=== PATIENT | male | born 1970 | race Caucasian/White ===

== ENCOUNTER → 2017-08-15 14:53 | Outpatient (CLI) | payer MEDICARE, SELFPAY ==
[2017-08-15 18:03] LABS: Anion Gap 7 (5-15); BUN 15 mg/dL (7-18); BUN/Creat Ratio 13.4 RATIO (10-20); Calcium,Total 10.1 mg/dL (8.5-10.1); Chloride 105 mmol/L (98-107); Cholesterol 201 mg/dL (200); Creatinine, Serum 1.12 mg/dL (0.70-1.30); EST Glomerular Filtration Rate 75 mL/min (>60); Est Glom Filt Rate - Afr Amer 91 mL/min (>60); Glucose 83 mg/dL (74-106); High Density Lipoprotein 52 mg/dL; Sodium Level 140 mmol/L (136-145); Triglycerides 183 mg/dL; Very Low Density Lipoprotein 37 mg/dL (5-40)
== END ==
PROVIDERS: Family Provider Family Medicine; PCP Family Medicine; Visit Provider Family Medicine
DX: Z00.00 Encounter for general adult medical examination without abnormal findings (principal)
CPT/HCPCS: 36415; 80048; 80061

== ENCOUNTER → 2018-08-19 09:06 | Outpatient (CLI) | payer MEDICARE, SELFPAY ==
[2018-08-19 10:37] LABS: Anion Gap 3 (5-15); BUN 19 mg/dL (7-18); BUN/Creat Ratio 17.6 RATIO (10-20); Calcium,Total 10.4 mg/dL (8.5-10.1); Chloride 107 mmol/L (98-107); Cholesterol 214 mg/dL (200); Creatinine, Serum 1.08 mg/dL (0.70-1.30); EST Glomerular Filtration Rate 78 mL/min (>60); Est Glom Filt Rate - Afr Amer 94 mL/min (>60); Glucose 87 mg/dL (74-106); High Density Lipoprotein 46 mg/dL; PSA,Total - Annual Screen 0.89 ng/mL (0.00-4.00); Potassium 4.5 mmol/L (3.5-5.1); Sodium Level 139 mmol/L (136-145); Triglycerides 398 mg/dL; Very Low Density Lipoprotein 80 mg/dL (5-40)
== END ==
PROVIDERS: Family Provider Family Medicine; PCP Family Medicine; Referring Provider Family Medicine; Visit Provider Family Medicine
DX: Z00.00 Encounter for general adult medical examination without abnormal findings (principal); E29.1 Testicular hypofunction
CPT/HCPCS: 36415; 80048; 80061; 84153; 84403; G0103

== ENCOUNTER → 2019-02-01 14:05 | Outpatient (CLI) | payer MEDICARE, SELFPAY ==
[2019-02-01 15:46] LABS: Cholesterol 172 mg/dL (200); High Density Lipoprotein 55 mg/dL; Magnesium 2.3 mg/dL (1.6-2.6); Thyroid Stim Hormone (TSH) 2.58 uIU/mL (0.358-3.74); Triglycerides 160 mg/dL; Very Low Density Lipoprotein 32 mg/dL (5-40)
== END ==
PROVIDERS: Family Medicine; Family Provider Family Medicine; PCP Family Medicine; Visit Provider Family Medicine
DX: E78.5 Hyperlipidemia, unspecified (principal); R00.2 Palpitations
CPT/HCPCS: 36415; 80061; 83735; 84443

== ENCOUNTER → 2019-02-10 06:49 | Outpatient (CLI) | payer MEDICARE, SELFPAY ==
--- NOTE | 2019-02-16 17:35 | STRESSREP ---
Stress Test Report Date: 02/16/2019 Procedure: Exercise tolerance test Indications: Chest pain, palpitations Consent: Per the patient Procedure: The patient exercised on a Robert protocol for 8 minutes achieving a peak heart rate of 160 bpm (92 % predicted maximal heart rate) with a peak blood pressure 170/62 mmHg and a peak MET capacity of approximately 10.1 mET's. The baseline ECG demonstrated normal sinus rhythm, nonspecific ST-T changes. The peak exercise ECG demonstrated sinus tachycardia with significant baseline artifact with about [address] depressions in the inferior and lateral leads. [There were no cardiac dysrhythmias pretest, during exercise, or recovery]. The functional capacity was considered average for age. The patient had no complaint of chest discomfort during exercise or recovery. The examination was discontinued secondary to patient achieving target heart rate. Impression: 1. Technically adequate (percent predicted maximal heart rate greater than 85%) exercise tolerance test 2. Stress test is negative for exercise-induced chest pain. 3. Stress test test is negative for exercise-induced EKG changes of ischemia. 4. Functional capacity is average for age This note was generated with [employer] software. It may contain incorrect words, spelling, and punctuation that were not noted in checking the note before signing.
== END ==
PROVIDERS: Family Provider Family Medicine; PCP Family Medicine; Referring Provider Family Medicine; Visit Provider Family Medicine
DX: R07.9 Chest pain, unspecified (principal)
CPT/HCPCS: 93017

== ENCOUNTER → 2020-02-16 08:34 | Outpatient (CLI) | payer MEDICARE, SELFPAY ==
[2020-02-16 10:38] LABS: Anion Gap 4 (5-15); BUN 19 mg/dL (7-18); BUN/Creat Ratio 16.7 RATIO (10-20); Chloride 105 mmol/L (98-107); Cholesterol 200 mg/dL (200); Creatinine, Serum 1.14 mg/dL (0.70-1.30); EST Glomerular Filtration Rate 73 mL/min (>60); Est Glom Filt Rate - Afr Amer 88 mL/min (>60); Glucose 94 mg/dL (74-106); High Density Lipoprotein 56 mg/dL; Potassium 4.2 mmol/L (3.5-5.1); Sodium Level 138 mmol/L (136-145); Triglycerides 161 mg/dL; Very Low Density Lipoprotein 32 mg/dL (5-40)
== END ==
PROVIDERS: PCP Family Medicine; Referring Provider Family Medicine; Visit Provider Family Medicine
DX: I10 Essential (primary) hypertension (principal)
CPT/HCPCS: 36415; 80048; 80061

== ENCOUNTER → 2020-08-30 | Outpatient (CLI) | payer MEDICARE, SELFPAY ==
[2020-08-30 18:29] LABS: Chlamydia Trachomatis by PCR Negative (Negative); Neisserai gonorrhoeae by PCR Negative (Negative); Probe Check PASS; Sample Adequacy Control PASS; Specimen Processing Control PASS
== END | disposition home or self-care (01) ==
PROVIDERS: PCP Family Medicine; Referring Provider Family Medicine; Visit Provider Family Medicine
DX: R30.0 Dysuria (principal)
CPT/HCPCS: 87086; 87491; 87591

== ENCOUNTER → 2020-09-27 11:59 | Outpatient (CLI) | payer MEDICARE, SELFPAY ==
--- NOTE | 2020-09-27 12:10 | RAD_ITS ---
STUDY: X-RAY - ABDOMEN/PELVIS REASON FOR EXAM: Male, 50 years old. DYSURIA TECHNIQUE: 4 view COMPARISON: 04/12/2012 FINDINGS: Normal visualized lung bases. There is an unremarkable bowel gas pattern. There is no demonstrated free abdominal air. The visualized liver, spleen and kidneys are grossly normal in size and morphology. Normal soft tissue structures. Normal visualized osseous structures. RAD/Abd Inc Decub and/or Erect IMPRESSION: Normal x-ray examination of the abdomen and pelvis. Electronically Signed: Deepa Pendleton, at 12:32 EDT Tel , Service support ,
== END ==
PROVIDERS: PCP Family Medicine; Referring Provider Family Medicine; Visit Provider Family Medicine
DX: R30.0 Dysuria (principal)
CPT/HCPCS: 74019

== ENCOUNTER → 2021-01-05 10:55 | Outpatient (CLI) | payer MEDICARE, SELFPAY ==
[2021-01-05 12:21] LABS: Absolute Lymphocyte Count 0.81 X10^3/uL (0.83-4.51); Absolute Neutrophil Count 5.5 X10^3/uL (2.0-7.7); Basophil# 0.03 X10^3/uL; Basophil% 0.4 % (0-1); Eosinophil# 0.05 X10^3/uL; Eosinophils% 0.7 % (0-5); Hematocrit 46.9 % (40-54); Lymphocyte # 0.81 X10^3/ul (0.83-4.51); Lymphocyte % 11.6 % (19-41); Mean Corp Hgb Conc 34.1 g/dL (32-36); Mean Corpuscular Hgb 32.5 pg (27.0-32.0); Mean Corpuscular Volume 95.1 fL (80-94); Mean Platelet Vol. 9.3 fl (6.2-12.0); Monocyte# 0.57 X10^3/uL; Monocyte% 8.2 % (0-10); NRBC Flagged by Analyzer 0 % (0-5); Neutrophil # 5.47 X10^3/uL (2.7-7.7); Neutrophil % 78.7 % (47-70); Platelet Count 287 K/mm3 (150-450); RBC Distribution Width CV 12.1 % (11.6-14.6); RBC Distribution Width SD 42.3 fl (35.1-43.9); Red Blood Count 4.93 M/mm3 (4.6-6.2)
[2021-01-05 12:44] LABS: Anion Gap 5 (5-15); BUN 15 mg/dL (7-18); BUN/Creat Ratio 14.6 RATIO (10-20); Chloride 104 mmol/L (98-107); Creatinine, Serum 1.03 mg/dL (0.70-1.30); EST Glomerular Filtration Rate 82 mL/min (>60); Est Glom Filt Rate - Afr Amer 99 mL/min (>60); Glucose 106 mg/dL (74-106); Magnesium 2.6 mg/dL (1.6-2.6); Potassium 4.6 mmol/L (3.5-5.1); Sodium Level 139 mmol/L (136-145); Troponin-I HS 6 pg/mL (3.0-78.0)
== END ==
PROVIDERS: PCP Family Medicine; Referring Provider Family Medicine; Visit Provider Family Medicine
DX: R00.2 Palpitations (principal)
CPT/HCPCS: 36415; 80048; 83735; 84484; 85025

== ENCOUNTER → 2021-01-11 06:52 | Outpatient (CLI) | payer MEDICARE, SELFPAY ==
--- NOTE | 2021-01-12 15:50 | STRESSREP_ITS ---
Stress Test Report Date: 01/11/2021 Procedure: Exercise tolerance test/imaging study Indications: Chest pain Consent: Per the patient Procedure: The patient exercised on a Robert protocol for 8 minutes 11 seconds achieving a peak heart rate of 10.1 bpm (98% predicted maximal heart rate) with a peak blood pressure 180/104 mmHg and a peak MET capacity of 10.1 METs. The baseline ECG demonstrated normal sinus rhythm, early repolarization changes. The peak exercise ECG demonstrated no significant ischemic changes. EKG during recovery revealed no significant ischemic changes [There were no cardiac dysrhythmias pretest, during exercise, or recovery]. The functional capacity was considered normal for age. There was [no complaint of chest discomfort during exercise or recovery]. The examination was discontinued secondary to shortness of breath. Impression: 1. Technically adequate (percent predicted maximal heart rate greater than 85%) exercise tolerance test 2. Stress test is negative for exercise-induced EKG changes of ischemia 3. The test test is negative for exercise-induced chest pain 4. Functional capacity is normal for age 5. Nuclear images pending Myocardial perfusion imaging study: Technique: The patient was injected with [] mCi of technetium 99m Cardiolite and subsequently rest SPECT Cardiolite nuclear imaging was obtained in the horizontal long, vertical long, and short axis views. The patient exercised on a Robert protocol. Please see above for details. The patient was injected with [] mCi of technetium 99m Cardiolite and subsequently stress SPECT Cardiolite nuclear imaging was obtained in the horizontal long, vertical long, and short axis views. A gated Cardiolite study at peak stress was obtained. Interpretation: Rest and stress SPECT Cardiolite nuclear imaging status post realignment, normalization, and attenuation correction, demonstrates overall normal myocardial radioisotope uptake. The gated Cardiolite study demonstrates no significant regional wall motion abnormalities. The reported LVEF is 59%. Impression: 1. There is no evidence of significant ischemia or infarction. 2. The gated Cardiolite study reports an LVEF of 59%. This note was generated with [email or web address] software. It may contain incorrect words, spelling, and punctuation that were not noted in checking the note before signing.
== END ==
PROVIDERS: PCP Family Medicine; Referring Provider Family Medicine; Visit Provider Family Medicine
DX: R07.9 Chest pain, unspecified (principal)
CPT/HCPCS: 78452; 93017; A9500; A4216

== ENCOUNTER → 2021-02-12 08:46 | Outpatient (CLI) | payer MEDICARE, SELFPAY ==
[2021-02-12 10:13] LABS: Anion Gap 4 (5-15); BUN 20 mg/dL (7-18); BUN/Creat Ratio 16.7 RATIO (10-20); Calcium,Total 10.9 mg/dL (8.5-10.1); Chloride 103 mmol/L (98-107); Cholesterol 211 mg/dL (200); EST Glomerular Filtration Rate 68 mL/min (>60); Est Glom Filt Rate - Afr Amer 83 mL/min (>60); Glucose 90 mg/dL (74-106); High Density Lipoprotein 81 mg/dL; Potassium 4.1 mmol/L (3.5-5.1); Sodium Level 137 mmol/L (136-145); Triglycerides 228 mg/dL; Very Low Density Lipoprotein 46 mg/dL (5-40)
== END ==
PROVIDERS: PCP Family Medicine; Visit Provider Family Medicine
DX: E78.5 Hyperlipidemia, unspecified (principal); E83.52 Hypercalcemia
CPT/HCPCS: 36415; 80048; 80061

== ENCOUNTER → 2022-02-20 | Outpatient (CLI) | payer MEDICARE, SELFPAY ==
[2022-02-20 10:39] LABS: Anion Gap 7 (5-15); BUN 26 mg/dL (7-18); BUN/Creat Ratio 24.3 RATIO (10-20); Calcium,Total 10.9 mg/dL (8.5-10.1); Chloride 107 mmol/L (98-107); Cholesterol 184 mg/dL (200); Creatinine, Serum 1.07 mg/dL (0.70-1.30); EST Glomerular Filtration Rate 78 mL/min (>60); Est Glom Filt Rate - Afr Amer 94 mL/min (>60); Glucose 95 mg/dL (74-106); High Density Lipoprotein 55 mg/dL; Potassium 4.7 mmol/L (3.5-5.1); Sodium Level 141 mmol/L (136-145); Triglycerides 234 mg/dL; Very Low Density Lipoprotein 47 mg/dL (5-40)
== END | disposition home or self-care (01) ==
PROVIDERS: PCP Family Medicine; Referring Provider Family Medicine; Visit Provider Family Medicine
DX: I10 Essential (primary) hypertension (principal)
CPT/HCPCS: 36415; 80048; 80061

== ENCOUNTER → 2022-08-19 | Outpatient (CLI) | payer MEDICARE, SELFPAY ==
[2022-08-19 10:41] LABS: Anion Gap 7 (5-15); BUN 21 mg/dL (7-18); BUN/Creat Ratio 18.4 RATIO (10-20); Calcium,Total 11.3 mg/dL (8.5-10.1); Chloride 108 mmol/L (98-107); Cholesterol 188 mg/dL (200); Creatinine, Serum 1.14 mg/dL (0.70-1.30); EST Glomerular Filtration Rate 72 mL/min (>60); Est Glom Filt Rate - Afr Amer 87 mL/min (>60); Glucose 101 mg/dL (74-106); High Density Lipoprotein 55 mg/dL; Potassium 4.4 mmol/L (3.5-5.1); Sodium Level 142 mmol/L (136-145); Triglycerides 124 mg/dL; Very Low Density Lipoprotein 25 mg/dL (5-40)
== END | disposition home or self-care (01) ==
LOC: MFPLAB 08:57
PROVIDERS: PCP Family Medicine; Visit Provider Family Medicine
DX: I10 Essential (primary) hypertension (principal)
CPT/HCPCS: 36415; 80048; 80061

== ENCOUNTER → 2022-08-20 | Outpatient (CLI) | payer MEDICARE, SELFPAY ==
[2022-08-21 09:11] LABS: PTHIN 101.7 pg/mL (18.4-80.1)
== END | disposition home or self-care (01) ==
LOC: MFPLAB 12:08
PROVIDERS: PCP Family Medicine; Visit Provider Family Medicine
DX: E83.52 Hypercalcemia (principal)
CPT/HCPCS: 36415; 83970

== ENCOUNTER → 2022-08-26 | Outpatient (CLI) | payer MEDICARE, SELFPAY ==
[2022-08-26 16:19] LABS: Vitamin D,25 Hydroxy 50.6 ng/mL
== END | disposition home or self-care (01) ==
LOC: MFPLAB 13:42
PROVIDERS: PCP Family Medicine; Visit Provider Family Medicine
DX: E21.5 Disorder of parathyroid gland, unspecified (principal)
CPT/HCPCS: 36415; 82306

== ENCOUNTER → 2022-10-03 | Outpatient (CLI) | payer MEDICARE, SELFPAY ==
[2022-10-03 11:08] LABS: Free T3 3.2 pg/mL (2.18-3.98); Thyroid Stim Hormone (TSH) 1.95 uIU/mL (0.358-3.74)
== END | disposition home or self-care (01) ==
LOC: MFPLAB 09:05
PROVIDERS: PCP Family Medicine; Visit Provider Family Medicine
DX: E21.3 Hyperparathyroidism, unspecified (principal); I10 Essential (primary) hypertension
CPT/HCPCS: 36415; 82330; 83970; 84443; 84481

== ENCOUNTER → 2022-11-14 | Outpatient (CLI) | payer MEDICARE, SELFPAY ==
--- NOTE | 2022-11-14 11:45 | US_ITS ---
INDICATION: hyperparathyroidism, localization EXAMINATION: Ultrasound US Thyroid (eg thyroid, parathyroid, parotid) TECHNIQUE: Hess scale and color doppler imaging was performed of the thyroid gland. TI-RADS criteria was utilized. COMPARISON: None. FINDINGS: RIGHT THYROID LOBE: 1.7 x 5.1 x 1.7 cm with a volume of 7.6 mL. Heterogeneous echotexture. 1.0 cm nodule which is mixed solid and cystic, isoechoic solid components, wider than tall with margins and no echogenic foci. Normal vascularity. LEFT THYROID LOBE: 1.7 x 4.2 x 1.5 cm with a volume of 5.5 mL. Heterogeneous echotexture. Normal vascularity. No thyroid nodules. ISTHMUS: 3 mm in AP diameter. Homogeneous echotexture. Normal vascularity. No thyroid nodules. 2.1 x 0.5 x 0.6 cm oval hypoechoic lesion posterior to the right lobe with mild vascularity possibly representing a parathyroid gland or lymph node. US/Thyroid IMPRESSION: 1. 2.1 x 0.5 x 0.6 cm oval hypoechoic lesion posterior to the right lobe of the thyroid possibly representing an enlarged parathyroid gland. 2. 1.0 cm right lobe TI-RADS 2 nodule with no follow-up recommended. Electronically Signed: Kalyan Peters DO at 23:40 EDT ,
--- NOTE | 2022-11-14 11:45 | US_ITS ---
STUDY: RENAL ULTRASOUND - COMPLETE REASON FOR EXAM: Male, 52 years old. kidney stones TECHNIQUE: Ultrasound evaluation of the kidneys was performed with real-time and static velez-scale imaging. COMPARISON: None. FINDINGS: RIGHT KIDNEY: Normal location of the right kidney, which is normal in size. The right kidney measures 10.4 x 6.3 x 5.2 cm. There is a normal cortex of the right kidney. The renal cortex measures 1.4 cm. There is no right renal mass or cyst. There is a nonobstructing calculus measuring 4 x 3 x 3 mm. There is no right hydronephrosis. DISTAL RIGHT URETER: There is non-visualization of the distal right ureter. There is no demonstrated right ureterovesical junction calculus. There is a visualized right ureteral jet. LEFT KIDNEY: Normal location of the left kidney, which is normal in size. The left kidney measures 11.8 x 5.8 x 6 cm. There is a normal cortex of the left kidney. The renal cortex measures 1.4 cm. There is no left renal mass or cyst. There are nonobstructing calculi measures 1.1 x 0.8 x 0.8 cm and 1.1 x 1.2 x 0.9 cm. There is no left hydronephrosis. DISTAL LEFT URETER: There is non-visualization of the distal left ureter. There is no demonstrated left ureterovesical junction calculus. There is a visualized left ureteral jet. BLADDER: The distended urinary bladder has a volume of 191.76 ml. The empty urinary bladder has a volume of 11.95 ml. There is a normal wall thickness of the distended urinary bladder. There is no demonstrated mass within the urinary bladder. There are no demonstrated bladder calculi. US/Kidney and Bladder IMPRESSION: Bilateral nephrolithiasis without evidence for renal obstruction Electronically Signed: Kalyan Fields MD at 20:53 EDT ,
== END | disposition home or self-care (01) ==
LOC: US 11:45
PROVIDERS: PCP Family Medicine; Referring Provider Internal Medicine Endocrinology, Diabetes & Metabolism; Visit Provider Internal Medicine Endocrinology, Diabetes & Metabolism
DX: E21.0 Primary hyperparathyroidism (principal); N20.0 Calculus of kidney
CPT/HCPCS: 76536; 76770

== ENCOUNTER → 2022-11-15 | Outpatient (CLI) | payer MEDICARE, SELFPAY ==
--- NOTE | 2022-11-15 09:44 | NM_ITS ---
CLINICAL: 52-year-old male with history of clinical hyperparathyroidism. 99m Tc SESTAMIBI DUAL PHASE PARATHYROID SCINTIGRAPHY COMPARISON: Thyroid ultrasound report 11/14/2022 FINDINGS: Following the intravenous administration of 27.2 mCi of 99m Tc sestamibi, image acquisitions of the anterior neck at approximately 20 minutes and 2.0 hours post radiopharmaceutical provision reveal: 1. Immediate static blood pool acquisitions demonstrate homogeneous radiopharmaceutical concentration defined in the right and left thyroid colloid of a U-shaped thyroid gland. 2. Delayed images depict symmetric incomplete washout of the radiotracer from the prior defined right-left thyroid parenchyma. There is no evidence of focal retained radiopharmaceutical concentration in the right-left thyroid beds. NM/Parathyroid Scan IMPRESSION: 1. NEGATIVE 99m Tc SESTAMIBI PARATHYROID IMAGING DUAL PHASE EXAMINATION. 2. Incomplete-delayed washout of the radiopharmaceutical from the entire functioning thyroid colloid may be secondary to multinodular goiter, chronic lymphocytic thyroiditis. (Giles, Radiographics 19: 601, 1999). Electronically Signed: Fredrick Nicholas, at 11:49 EDT ,
== END | disposition home or self-care (01) ==
LOC: NM 09:43
PROVIDERS: PCP Family Medicine; Referring Provider Internal Medicine Endocrinology, Diabetes & Metabolism; Visit Provider Internal Medicine Endocrinology, Diabetes & Metabolism
DX: E21.0 Primary hyperparathyroidism (principal); N20.0 Calculus of kidney
CPT/HCPCS: 78070; A9500

== ENCOUNTER → 2022-12-06 | Outpatient (CLI) | payer MEDICARE, SELFPAY ==
[2022-12-06 17:48] LABS: Absolute Neutrophil Count 3.5 X10^3/uL (2.0-7.7); Basophil# 0.03 X10^3/uL; Basophil% 0.5 % (0-1); Eosinophil# 0.06 X10^3/uL; Eosinophils% 1.1 % (0-5); Hematocrit 43.3 % (40-54); Lymphocyte % 25.5 % (19-41); Mean Corp Hgb Conc 34.6 g/dL (32-36); Mean Corpuscular Hgb 34.2 pg (27.0-32.0); Mean Corpuscular Volume 98.6 fL (80-94); Mean Platelet Vol. 9.3 fl (6.2-12.0); Monocyte# 0.49 X10^3/uL; Monocyte% 8.9 % (0-10); NRBC Flagged by Analyzer 0 % (0-5); Neutrophil # 3.51 X10^3/uL (2.7-7.7); Neutrophil % 63.8 % (47-70); Platelet Count 285 K/mm3 (150-450); RBC Distribution Width CV 12.2 % (11.6-14.6); RBC Distribution Width SD 44.9 fl (35.1-43.9); Red Blood Count 4.39 M/mm3 (4.6-6.2); White Blood Count 5.5 K/mm3 (4.4-11.0)
[2022-12-06 18:16] LABS: ALB/GLOB Ratio 1.1 RATIO (0.9-2.4); AST(SGOT) 21 U/L (15-37); Alanine Aminotransfer ALT/SGPT 58 U/L (16-61); Alkaline Phosphatase 68 U/L (45-117); Anion Gap 6 (5-15); BUN 24 mg/dL (7-18); BUN/Creat Ratio 23.3 RATIO (10-20); Calcium,Total 10.4 mg/dL (8.5-10.1); Chloride 105 mmol/L (98-107); Cholesterol 220 mg/dL (200); Creatinine, Serum 1.03 mg/dL (0.70-1.30); EST Glomerular Filtration Rate 81 mL/min (>60); Est Glom Filt Rate - Afr Amer 98 mL/min (>60); Globulin 3.6 g/dL (2.2-4.2); Glucose 78 mg/dL (74-106); High Density Lipoprotein 67 mg/dL; Potassium 4.2 mmol/L (3.5-5.1); Protein, Total 7.6 g/dL (6.4-8.2); Sodium Level 138 mmol/L (136-145); Triglycerides 357 mg/dL; Very Low Density Lipoprotein 71 mg/dL (5-40)
== END | disposition home or self-care (01) ==
LOC: MFPLAB 16:02
PROVIDERS: PCP Family Medicine; Visit Provider Family Medicine
DX: I10 Essential (primary) hypertension (principal)
CPT/HCPCS: 36415; 80053; 80061; 85025

== ENCOUNTER → 2022-12-18 | Outpatient (CLI) | payer MEDICARE, SELFPAY ==
--- NOTE | 2022-12-18 09:01 | BD_ITS ---
STUDY: DUAL ENERGY X-RAY ABSORPTIOMETRY / DXA REASON FOR EXAM: Male, 52 years old. hyperparathyroidisms TECHNIQUE: Bone Mineral Density (BMD) measurements of lumbar spine and bilateral hips were obtained. COMPARISON: None. FINDINGS: Lumbar Spine (L1-L4): g/cm2 (0.786) / T-score (-2.7) / Z-score (-2.3) Findings are suggestive of osteoporosis with a high fracture risk. Left Femur Total: g/cm2 (0.822) / T-score (-1.4) / Z-score (-1.1) Left Femoral Neck: g/cm2 (0.660) / T-score (-2.0) / Z-score (-1.2) Right Femur Total: g/cm2 (0.743) / T-score (-1.9) / Z-score (-1.6) Right Femoral Neck: g/cm2 (0.621) / T-score (-2.3) / Z-score (-1.5) BD/Dexa Bone Density Study IMPRESSION: The patient is considered osteoporotic as outlined below according to World Mariusz Organization (WHO) criteria with a high fracture risk. Reference Information: The T-score is the number of standard deviations above or below the standard which is normal for young adults at their peak bone mineral density. The World Health Organization (WHO) interprets the T-scores as follows: Above -1 Normal bone density Between -1 and -2.5 Osteopenia Equal to / or below -2.5 Osteoporosis As a practical clinical guideline, osteopenia may be graded as follows: Mild -1 through -1.5 Moderate -1.6 through -2.0 Severe -2.1 through -2.4 The Z-score is the number of standard deviations above or below age-matched controls. A Z-score of less than -1.5 would be considered abnormal. References: 1. NIH Osteoporosis and Related Bone Diseases www osteo.org 2. International Society for Clinical Densitometry www iscd.org 3. National Osteoporosis Foundation www nof.org Electronically Signed: [place] MD at 13:30 EDT ,
== END | disposition home or self-care (01) ==
LOC: OPBD 08:56
PROVIDERS: PCP Family Medicine; Referring Provider Surgery; Visit Provider Surgery
DX: E21.0 Primary hyperparathyroidism (principal)
CPT/HCPCS: 77080

== ENCOUNTER → 2023-04-17 | Outpatient (CLI) | payer MEDICARE, SELFPAY ==
[2023-04-17 12:21] LABS: Absolute Neutrophil Count 1.5 X10^3/uL (2.0-7.7); Basophil# 0.01 X10^3/uL; Basophil% 0.3 % (0-1); Eosinophil# 0.05 X10^3/uL; Eosinophils% 1.7 % (0-5); Hematocrit 47.1 % (40-54); Hemoglobin 16.2 g/dL (13.0-16.5); Lymphocyte % 34.2 % (19-41); Mean Corp Hgb Conc 34.4 g/dL (32-36); Mean Corpuscular Hgb 33.2 pg (27.0-32.0); Mean Corpuscular Volume 96.5 fL (80-94); Mean Platelet Vol. 9.6 fl (6.2-12.0); Monocyte# 0.38 X10^3/uL; NRBC Flagged by Analyzer 0 % (0-5); Neutrophil # 1.47 X10^3/uL (2.7-7.7); Neutrophil % 50.5 % (47-70); Platelet Count 255 K/mm3 (150-450); RBC Distribution Width CV 11.7 % (11.6-14.6); RBC Distribution Width SD 41.1 fl (35.1-43.9); Red Blood Count 4.88 M/mm3 (4.6-6.2); White Blood Count 2.9 K/mm3 (4.4-11.0)
[2023-04-17 13:04] LABS: PTHIN 75.9 pg/mL (18.4-80.1)
[2023-04-17 13:29] LABS: Anion Gap 5 (5-15); BUN 19 mg/dL (7-18); BUN/Creat Ratio 18.1 RATIO (10-20); Calcium,Total 10.1 mg/dL (8.5-10.1); Chloride 107 mmol/L (98-107); Creatinine, Serum 1.05 mg/dL (0.70-1.30); EST Glomerular Filtration Rate 79 mL/min (>60); Est Glom Filt Rate - Afr Amer 96 mL/min (>60); Glucose 100 mg/dL (74-106); Potassium 4.4 mmol/L (3.5-5.1); Sodium Level 140 mmol/L (136-145)
== END | disposition home or self-care (01) ==
LOC: MFPLAB 10:55
PROVIDERS: PCP Family Medicine; Visit Provider Family Medicine
DX: I10 Essential (primary) hypertension (principal); E21.3 Hyperparathyroidism, unspecified
CPT/HCPCS: 36415; 80048; 83970; 85025

== ENCOUNTER 2023-05-13 06:20 | Day surgery (SDC) | payer MEDICARE, SELFPAY ==
[2023-05-13] VITALS (7 sets, daily range): BP systolic 130–144; BP diastolic 80–95; PULSE 70–104; RESP 16; TEMP 36–37.9; O2SAT 92–100; BMI 24.1
--- NOTE | 2023-05-13 | PARA_PTH ---
PATHOLOGY RESULTS PATIENT: PURNIMA RUIZ LOC: [facility] [place] U#:[id number] AGE/SX: 52/M ROOM: RE05/13/[address]: Dr. Agustin Marley MD : 1970 BED: DIS: 05/13/2023 SPEC #: [id number] RECD: 05/13/23 09:21 STATUS: NINA REYany #: [id number] CHERI: 05/13/23 00:[address]: Agustin Marley DEPT: SURGICAL PATHOLOGY RECD BY: Sindhu Landin ENTERED: 05/13/23 10:06 SP TYPE: PARATHY OTHR DR: Dr. Raymundo Adams MD Tissues: Parathyroid Procedures: Frozen Section (charge) Surgery Specimen Level IV HEADER OPERATION: Parathyroidectomy PRE-OP DIAGNOSIS: Primary hyperparathyroidism TISSUE SUBMITTED: Right inferior parathyroid within thymic tissue, frozen section FROZEN SECTION DIAGNOSIS Right inferior parathyroid, parathyroidectomy: Hyperplastic parathyroid (0.636 gm). SJ:kaushal 05/13/2023 MICROSCOPIC DIAGNOSIS Right inferior parathyroid, parathyroidectomy: Hyperplastic parathyroid tissue (0.636 gm). See comment. SJ:kaushal 05/14/2023 COMMENT Thymic tissue is not seen in the specimen. Adipose tissue is noted adjacent to parathyroid gland tissue. Case has been reviewed in consultation with Dr. Theodore who concurs with the above diagnosis. IDC:AM MICROSCOPIC DESCRIPTION Slides are reviewed. GROSS DESCRIPTION Received fresh for frozen section diagnosis labeled with the patient's name is a specimen designated right inferior parathyroid within thymic tissue. The specimen consists of a piece of pink-rangel soft tissue with attached adipose tissue weighing 0.6 gm and measuring 2.5 x 0.9 x 0.5 cm. The specimen is bisected. One half of the specimen is submitted for frozen section diagnosis. The entire specimen is submitted in two cassettes as follows: 1 - frozen section of one-half of the specimen, 2 - rest of the specimen. / SJ:rg 05/13/2023 TC:5 CPT: 71053, 85799
[2023-05-13] MEDS: Lactated Ringers 1,000 ML 15 ML IV (06:52)
[2023-05-13 07:15] LABS: PTHIN 122.9 pg/mL (18.4-80.1)
--- NOTE | 2023-05-13 07:40 | PCM.HP.BLA ---
History and Physical Date of Admission: 05/13/23 Date of Service: 04/22/23 MR#: [id number] Acct: [id number] Name: PURNIMA CLARKE Rep #: [id number] : 1970 Provider: Dr. Agustin Marley MD Age/Sex: 52/M Location: [facility] Status: Signed Intake Vital Signs 01/04/2308:27 04/22/2413:25 Height 5 ft 9 in Weight: 163 lb 2 oz BMI 24.0 BP 134/86 H 144/87 H Blood Pressure Location Rt brachial Rt brachial Position Sitting Sitting Respiration 17 17 Pulse 69 78 Pulse Source NIBP Monitor Temp 97.8 F 97.6 F L Temp Source Temporal Temporal Pulse Oximetry (%) 99 99 Oxygen Delivery Method room air room air Intake Visit Reasons: DISCUSS SURGERY Chief Complaint: discuss surgery Is patient in pain?: No Allergies No Known Allergies Allergy (Verified 04/22/23 14:26) Medications alprazolam 0.5 mg tablet 0.5 mg PO QHS PRN 11/05/22 [History Confirmed 04/22/23] bisoprolol fumarate 5 mg tablet 5 mg PO DAILY 11/05/22 [History Confirmed 04/22/23] metoclopramide HCl 5 mg tablet 5 mg PO QACHS 11/05/22 [History Confirmed 04/22/23] multivit with am-ME-egvelngx-omega 3,6,9 no.3 400 mcg-300 mcg capsule cap PO 11/05/22 [History Confirmed 04/22/23] omeprazole 10 mg capsule,delayed release 10 mg PO DAILY 11/05/22 [History Confirmed 04/22/23] tramadol 50 mg tablet 100 mg PO BID PRN 11/05/22 [History Confirmed 04/22/23] amlodipine 10 mg tablet mg PO 01/03/23 [History Confirmed 04/22/23] PFSH Medical History HTN (hypertension) Hypercalcemia Nephrolithiasis Primary hyperparathyroidism Surgical History H/O hernia repair Family History Father Brain tumor Cancer Prostate Cancer Grandfather Diabetes Social History Smoking Status: Never smoker alcohol intake: current alcohol intake frequency: 0-2 drinks per day substance use type: does not use what type of physical activity do you participate in: none HPI HPI HPI: Patient is a 52-year-old male who presents for hypercalcemia, nephrolithiasis, and primary hyperparathyroidism. They are referred from Dr. Schroeder. He made his initial surgical consultation on 12/04/2022 and a subsequent visit on 01/03/2023. He presents today for preoperative conversations. He shares that he recently went through updated blood work with his primary care provider and was informed that his results are now within normal limits. He wonders the significance of this finding. He confirms, however, that he is still experiencing reflux, hypertensive episodes, and lots of brain fog/memory issues . Below is recapitulated from patient's initial consultation visit for ease of review: has completed bone density testing prior to today's visit. He is happy to report that his blood pressure is improved after increasing his home amlodipine, but does state that things have become challenging for him on a social level since he is splitting with his girlfriend. Patient has no history of bone density testing. Patient has no history of pathologic fractures. Patient has a significant history of kidney stones dating back to 1991. He states that he has had some 5 to 7 stones in total, but has been able to pass each of these spontaneously. He reports that a stone assay was performed on the first stone, but he does not recall any details given the time of his lab since that study was performed. Patient has a history of frequent dental caries or chipped teeth. Patient has no history of brittle fingernails. Patient has a history of GERD and reports breakthrough symptoms if he does not take Prilosec daily. He has never undergone EGD (or colonoscopy). Patient has a significant history of hypertension and his initial blood pressure at today's visit exceeded 200 mmHg for systolic pressure. Mr. Clarke admits that he does not routinely check his blood pressures at home, but also admits that he has been anxious for today's appointment and took some caffeine for chronic headaches. Additional symptoms include: Difficulty concentrating, fatigue, and poor memory. Significantly Mr. Clarke does not experience constipation, myalgias or arthralgias, or muscle weakness. Patient has no history of prior radiation exposure. Patient has a family history of other endocrinopathies including a paternal grandfather that had a thyroid issue (not able to further specify) and a paternal uncle who has hypothyroidism. Patient does admit to having a diet high in dairy. Specifically he states that he is very bad with cottage cheese and cheese. Patient's current labs are calcium: 11.3 mg/dL (08/19/2022) [hypercalcemia is noted dating back to 2012], Vitamin D: 50.6 ng/mL (08/26/2022), Ionized calcium: 6.1 mg/dL (10/03/2022), PTH: 98 pg/mL (10/03/2022) [range of 98-101.7 in 2022] Current medications include: Multivitamin. Imaging has been done with both ultrasound and sestamibi on 11/14/2022 and 11/15/2022, respectively. Thyroid ultrasound showed a right thyroid lobe measuring 5.1 x 1.7 x 1.7 cm. A 1 cm TI-RADS 2 nodule is noted within this lobe. Left lobe measured 4.2 x 1.7 x 1.5 cm. Posterior and inferior to the right thyroid lobe a radiology identified a 2.1 x 0.5 x 0.6 cm hypoechoic lesion considered consistent with a possible parathyroid adenoma. The sestamibi showed incomplete washout of the tracer and was read as concerning for possible thyroiditis. There is no SPECT-CT performed. Patient has not had DEXA imaging. Patient has had renal imaging with renal ultrasound on 11/14/2022 that showed bilateral nonobstructing nephrolithiasis. ROS General General: Yes fatigue; No weight change, appetite, colon cancer, breast cancer or weakness HEENT HEENT: No difficulty swallowing, eye injury, eye surgery, swollen glands or hoarseness Endo Endocrine: No thyroid disease, diabetes mellitus, thyroid cancer, Hair loss, heat intolerance or cold intolerance Skin Skin: No rash or changing moles Musc Musculoskeletal: No back problems, arthritis, rheumatoid arthritis, gout or joint pain Cardio Cardiovascular: Yes high blood pressure; No murmur, pacemaker, heart disease, atrial fibrillation, heart attack, heart stent, palpitations, shortness of breat with exertion or chest pain Psych Psychiatric: Yes anxiety; No depression or hearing voices Resp Respiratory: No shortness of breath, No sleep apnea, No cough, No COPD, No asthma, No emphysema and No wheezing Gastro Gastrointestinal: No abdominal pain, No nausea or vomiting, No diarrhea, No constipation, No blood in stool, Yes acid reflux, No hemorrhoids, No ulcers, No gallbladder problem and No black,tarry stools Mkie Hematologic: No blood thinners, No blood disorders, No bleeding, No anemia and No blood clots Neuro Neurologic: No system reviewed and no additional complaints, except as documented, No as per HPI, No abnormal gait, No abnormal hearing, No abnormal movements, No abnormal speech, No behavioral changes, No burning sensations, No confusion, No convulsions, No disequilibrium, No dizziness, No localized weakness, No frequent falls, No headache(s), No lack of coordination, No loss of vision, No memory loss, No numbness, No other visual disturbances, No radicular pain, No restless legs, No sensory deficit, No syncope, No tingling, No tremor(s), No weakness and No other Exam Const General: cooperative and anxious Neck Neck: normal visual inspection Assessment and Plan Assessment and Plan (1) Primary hyperparathyroidism: Status: Chronic (2) Nephrolithiasis: Status: Chronic (3) Hypercalcemia: Status: Chronic Plan This is a 52-year-old male with a history of primary hyperparathyroidism and nephrolithiasis who presents with thyroid ultrasound imaging identified a probable parathyroid adenoma on the right. Additionally, patient has significant history with gastroesophageal reflux and hypertension. I held a lengthy conversation with patient and his spouse regarding this diagnosis and the downstream potential effects of hyperparathyroidism. I used hand drawings where possible to communicate my points and was careful to outlined that certain symptoms would be impossible to link directly to hyperparathyroidism a priori. These specifically included the neuropsychiatric symptoms . Regarding this issue, patient does remark of significant afternoon fatigue, difficulty concentrating, fogginess , and memory challenges. Given this constellation of issues, I believe Mr. Clarke would benefit from surgical intervention with parathyroidectomy and him encouraged by his ultrasound findings which I reproduce with my own exam. During patient's December 2022 visit, I reviewed Mr. Clarke's recent DEXA imaging that demonstrates evidence of osteoporosis in the lumbar spine. I reviewed with him the significance of this finding?especially in light of his younger age and even sex. I shared with him that this was just further evidence that he met criteria for surgical intervention. He admits to significant anxiety and wishes to know whether this does seem to be a typical presentation. I have reassured him that the majority of his work-up does point to this conclusion. I also reviewed with him the relevant risks of the operation?to include conversion to a 4 gland exploration, hypoparathyroidism, and recurrent laryngeal nerve injury. I have shared with him the precautions that I take as a standard rule with respect to loupe magnification, intraoperative neuro monitoring, and PTH monitoring. At this time Mr. Clarke wishes to postpone a final decision on surgery until after the first of the year. We will thus plan to update his H&P early April 2023 and reassess his interest. Today I reviewed with Mr. Clarke that I believe he still has primary hyperparathyroidism and that this is signified even in his recent normal labs since both his PTH and calcium values reside within the highest of the normal ranges for these labs, respectively. I have shared that these labs should not vary directly as they are and this signifies a pathologic state. I also reviewed with him his DEXA imaging results and ultrasound localization studies. He shares with me that he remains anxious for the procedure and I and return discussed with him the principles of intraoperative PTH monitoring, intraoperative nerve monitoring, and loupe magnification as a means of trying to mitigate operative risks for this procedure. I once again shared with him that at a population level we would expect him to have only a single overactive adenoma, however, I was rachel with him and admitting that his lower PTH and calcium levels do put him at some increased risk for this being a state of hyperplasia. I have distinguished with him the implications for a adenoma versus hyperplasia diagnosis?particularly on postoperative recovery. He repeatedly shares that he is anxious, but wishes to proceed as recommended. I do share that I would like to plan for a parathyroidectomy with intraoperative PTH and nerve monitoring. This will be scheduled with plans for outpatient disposition. I have examined the patient and the H&P has been reviewed. There are no clinical changes since date of exam. He and his mother have a number of questions about what they can expect following surgery. I also clarified with them the symptoms of hypocalcemia and lastly the possibility of requiring an overnight observational stay if more than 1 gland peers to be involved. They are satisfied with these explanations we will now proceed to the operating room for planned parathyroidectomy with intraoperative nerve and PTH monitoring.
[2023-05-13 09:10] LABS: PTHIN 147.8 pg/mL (18.4-80.1)
[2023-05-13 09:42] LABS: PTHIN 49.9 pg/mL (18.4-80.1)
[2023-05-13 09:46] LABS: PTHIN 35.9 pg/mL (18.4-80.1)
[2023-05-13] MEDS: Bupivacaine 0.25% 30 ML Vial (09:59)
--- NOTE | 2023-05-13 10:03 | PCM.OPRPT ---
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 636 mg hyperplastic parathyroid identified within the right thyroid thymic ligament consistent with a right inferior parathyroid adenoma ? No grossly visible superior parathyroid ? Normal dimensions/grossly?normal-appearing right thyroid lobe Surgeon: Agustin Marley hydration plant operator: Astrid Stewart Type of Anesthesia: General/Supplemental Anesthesiologist: August Christy Specimen's removed: Right inferior parathyroid (thyroid thymic ligament Description of Procedure: After appropriate identification in the preoperative holding area the patient was brought to the operating room where he was positioned supine on the operating room table. There he was induced with general endotracheal anesthetic. Of note, a preoperative PTH had been obtained and was reported as 122.9. Patient was then intubated using a Nims tube and glidescope to ensure coaptation between the vocal cords and the Nims tube electrodes. A resistance check confirmed appropriate function of the tube after the electrodes were properly connected to the monitoring box. Patient was then positioned in cervical extension, but adequately supporting the occiput. He was prepped and draped in the usual sterile fashion and a formal timeout followed to confirm patient and the procedure to be performed. A local block was produced with infiltration of local anesthetic and a 4cm transverse incision was made. This was deepened with the use of electrocautery through the platysma and subplatysmal flaps were raised superiorly and inferiorly. Ultimately the strap muscles were exposed and were divided along their raphe with electrocautery. The strap muscles were from one another as I proceeded with dissection laterally towards the patient's right internal jugular vein. Once this structure was sufficiently exposed I obtained a baseline central vein PTH level. This ultimately returned at 147.8. For the interim I returned to the patient's neck and elevated the inferior pole of the right thyroid lobe. To do so this required division of some accessory vessels approaching the thyroid capsule but did not represent the middle thyroid vein, proper. Shortly after gaining adequate mobilization, it became apparent that patient had a large parathyroid gland located just deeply and inferiorly to this pole. Careful blunt dissection was employed to free the structure from its surrounding soft tissue attachments. As it was dissected, it was then apparent that the gland resided within the thyroid thymic ligament arising inferiorly. After verifying that several crossing structures did not represent the recurrent laryngeal nerve they were divided and the parathyroid was elevated and bluntly dissected down to a clear extension of thymic tissue. The LigaSure was used to amputate the specimen free and our operative time was noted. This specimen was submitted for frozen section confirmation designated right inferior parathyroid within thymic tissue . (Later, pathology telephoned the room to notify us that indeed this represented a large parathyroid gland weighing 636 mg and appeared hyperplastic). As we awaited this result, I irrigated the surgical cavity with sterile water examined for hemostasis. Finding this intact, I also developed a plane between the superior pole of the right thyroid lobe and the strap muscles. I stayed directly against the capsule attempting to identify the right superior parathyroid. However, none was immediately visible despite opening several planes directly adjacent to the capsule that appeared suspicious for parathyroid tissue. Right internal jugular ex vivo blood draws were made with a 22-gauge needle and syringe at 5 and 10 minutes resulting 49.9 and 35.9, respectively. I attempted to identify the right superior gland once more but was again unable to identify it against the right superior pole or adjacent to the middle thyroid vein. It was about this time that I received the above PTH values indicating that we had addressed the underlying pathology. I thus obtained a final PTH value at approximately 24 minutes ex vivo that returned 25.1. Satisfied with this result, the case was terminated and hemostasis was once again confirmed in the surgical bed. The neck was closed in layers; the strap muscles were run with a 3-0 Vicryl suture to reapproximate the raphe, but a gap was left in the inferior most portion of the strap muscles. Then the platysmal layer was reapproximated with interrupted 3-0 Vicryl. Additional local anesthetic was instilled. The skin was closed using a running 4-0 Monocryl in a subcuticular fashion. Steri-Strips and Telfa OpSite was applied as a dressing. Patient was then awoken from general anesthetic and taken to PACU for ongoing recovery. Complications None Admit VTE Documentation VTE Mechan Device Prophylaxis: SCD's Procedures Endocrine CF Procedures [id number]: Other Procedure See Report (cpt 04278 parathyroidectomy)
--- NOTE | 2023-05-13 10:11 | EX.PCM.DISCH ---
Discharge Instructions Diet Discharge Diet: No restrictions (However recommend a liquid to soft diet initially postoperatively) Activity Discharge Activity: May Not Drive (While it remains difficult to check blind spots quickly) May shower in (days): 2 Ice area for (Minutes): 20 Lifting Restrictions: No lifting greater than 15 pounds for 2 weeks after surgery Dressing / Incision Call your doctor if your incision/area has: Continuous Slow Oozing, Sudden Increased Bleeding, Increased Pain/ Swelling, Increased Redness and Swelling at the incision site Call your doctor if you observe: Numbness or Tingling (Please take a regular strength Tums if experiencing) Remove Dressing in: 2 days (Please leave Steri-Strips intact until they fall off spontaneously or are taken off at your follow-up visit) Cleanse incision/area with: Soap & Water Follow Up Care Please Follow Up With: Agustin Marley MD When: 7 days postop Test Results: Test results from this visit will be discussed in further detail at your follow-up appointment, if applicable. Discharge Plan Admission Primary Reason for Your Visit: Parathyroid surgery Attending Provider: Agustin Marley Primary Care Provider: Raymundo Adams Discharge Orders/Prescriptions Prescriptions: New calcium carbonate-vitamin D3 [Calcium 600 + D(3)] 600 mg-10 mcg (400 unit) tablet 1 tab PO TID 30 Days Qty: 90 0RF calcitriol 0.25 mcg capsule 0.25 mcg PO DAILY 30 Days Qty: 30 0RF Continued alprazolam 0.5 mg tablet 0.5 mg PO QHS PRN (Reason: anxiety) omeprazole 10 mg capsule,delayed release(DR/EC) 10 mg PO DAILY bisoprolol fumarate 5 mg tablet 5 mg PO DAILY metoclopramide HCl 5 mg tablet 5 mg PO QACHS tramadol 50 mg tablet 100 mg PO QHS amlodipine 10 mg tablet 10 mg PO DAILY Patient Comments: Take 1 tablet by mouth daily Other Ambulatory Orders: 12 Lead EKG (Routine) Timeframe: [id number] Location: None Selected Ordered By: Dr. Yemi Hodge 12 Lead EKG (Routine) Location: None Selected Ordered By: Dr. Yemi Hodge Referrals / Follow Up: Raymundo Adams MD [Primary Care Provider] - Disposition Disposition (needs filled in before D/C Order can be placed): Home, Self Care
[2023-05-13 10:13] LABS: PTHIN 25.1 pg/mL (18.4-80.1)
[2023-05-13 11:11] LABS: PTHIN 9.5 pg/mL (18.4-80.1)
[2023-05-13] MEDS: Acetaminophen 325 MG Tablet 650 MG PO (11:53)
== END 2023-05-13 13:04 | disposition home or self-care (01) ==
LOC: SDC 06:25 → AC 06:25
PROVIDERS: PCP Family Medicine; Referring Provider Family Medicine; Visit Provider Surgery
PROC: (CPT 60500; principal; 2023-05-13 07:45)
DX: D35.1 Benign neoplasm of parathyroid gland (principal); E21.0 Primary hyperparathyroidism; N20.0 Calculus of kidney; E83.52 Hypercalcemia; K21.9 Gastro-esophageal reflux disease without esophagitis; I10 Essential (primary) hypertension; Z79.899 Other long term (current) drug therapy
CPT/HCPCS: 60500; 83970; 88305; 88331; 93005; J7120; J2405

== ENCOUNTER → 2023-05-21 | Outpatient (CLI) | payer MEDICARE, SELFPAY ==
[2023-05-21 13:41] LABS: Calcium,Total 9.6 mg/dL (8.5-10.1)
[2023-05-21 13:42] LABS: PTHIN 31.2 pg/mL (18.4-80.1)
== END | disposition home or self-care (01) ==
LOC: PAVLAB 13:05
PROVIDERS: PCP Family Medicine; Referring Provider Surgery; Visit Provider Surgery
DX: Z98.890 Other specified postprocedural states (principal); Z90.89 Acquired absence of other organs
CPT/HCPCS: 36415; 82310; 83970

== ENCOUNTER → 2023-06-18 | Outpatient (CLI) | payer MEDICARE, SELFPAY ==
[2023-06-18 09:46] LABS: Calcium,Total 9.6 mg/dL (8.5-10.1)
[2023-06-18 10:08] LABS: PTHIN 56.9 pg/mL (18.4-80.1)
== END | disposition home or self-care (01) ==
LOC: PAVLAB 09:13
PROVIDERS: PCP Family Medicine; Referring Provider Surgery; Visit Provider Surgery
DX: Z98.890 Other specified postprocedural states (principal); Z90.89 Acquired absence of other organs
CPT/HCPCS: 36415; 82310; 83970

== ENCOUNTER → 2023-07-02 | Outpatient (CLI) | payer MEDICARE, SELFPAY ==
[2023-07-02 10:12] LABS: Calcium,Total 9.6 mg/dL (8.5-10.1)
[2023-07-02 10:20] LABS: PTHIN 30.9 pg/mL (18.4-80.1)
== END | disposition home or self-care (01) ==
LOC: PAVLAB 09:41
PROVIDERS: PCP Family Medicine; Referring Provider Surgery; Visit Provider Surgery
DX: E89.2 Postprocedural hypoparathyroidism (principal); Z90.89 Acquired absence of other organs; Z98.890 Other specified postprocedural states
CPT/HCPCS: 36415; 82310; 83970

== ENCOUNTER → 2023-07-21 | Outpatient (CLI) | payer MEDICARE, SELFPAY ==
[2023-07-21 11:22] LABS: PTHIN 40.2 pg/mL (18.4-80.1)
== END | disposition home or self-care (01) ==
LOC: PAVLAB 10:47
PROVIDERS: PCP Family Medicine; Referring Provider Surgery; Visit Provider Surgery
DX: E21.3 Hyperparathyroidism, unspecified (principal); Z90.89 Acquired absence of other organs; Z98.890 Other specified postprocedural states
CPT/HCPCS: 36415; 82310; 83970

== ENCOUNTER → 2023-09-29 | Outpatient (CLI) | payer MEDICARE, SELFPAY ==
[2023-09-29 10:33] LABS: PTHIN 33.9 pg/mL (18.4-80.1)
[2023-09-29 10:49] LABS: Anion Gap 6 (5-15); BUN 19 mg/dL (7-18); BUN/Creat Ratio 16.7 RATIO (10-20); Calcium,Total 9.7 mg/dL (8.5-10.1); Chloride 107 mmol/L (98-107); Cholesterol 209 mg/dL (200); Creatinine, Serum 1.14 mg/dL (0.70-1.30); EST Glomerular Filtration Rate 72 mL/min (>60); Est Glom Filt Rate - Afr Amer 87 mL/min (>60); Glucose 94 mg/dL (74-106); High Density Lipoprotein 53 mg/dL; Potassium 3.9 mmol/L (3.5-5.1); Sodium Level 138 mmol/L (136-145); Triglycerides 143 mg/dL; Very Low Density Lipoprotein 29 mg/dL (5-40)
== END | disposition home or self-care (01) ==
LOC: MFPLAB 08:28
PROVIDERS: PCP Family Medicine; Visit Provider Family Medicine
DX: I10 Essential (primary) hypertension (principal); Z98.890 Other specified postprocedural states
CPT/HCPCS: 36415; 80048; 80061; 83970

== ENCOUNTER → 2024-03-26 | Outpatient (CLI) | payer MEDICARE, SELFPAY ==
[2024-03-26 10:44] LABS: ALB/GLOB Ratio 1.1 RATIO (0.9-2.4); AST(SGOT) 21 U/L (15-37); Alanine Aminotransfer ALT/SGPT 48 U/L (16-61); Albumin, Serum 4.4 g/dL (3.2-5.0); Alkaline Phosphatase 64 U/L (45-117); Anion Gap 6 (5-15); BUN 17 mg/dL (7-18); Calcium,Total 9.5 mg/dL (8.5-10.1); Chloride 108 mmol/L (98-107); Cholesterol 233 mg/dL (200); Creatinine, Serum 1.13 mg/dL (0.70-1.30); EST Glomerular Filtration Rate 72 mL/min (>60); Est Glom Filt Rate - Afr Amer 88 mL/min (>60); Glucose 102 mg/dL (74-106); High Density Lipoprotein 73 mg/dL; Potassium 4.2 mmol/L (3.5-5.1); Protein, Total 8.4 g/dL (6.4-8.2); Sodium Level 140 mmol/L (136-145); Triglycerides 118 mg/dL; Very Low Density Lipoprotein 24 mg/dL (5-40)
[2024-03-26 10:50] LABS: PTHIN 54.3 pg/mL (18.4-80.1)
== END | disposition home or self-care (01) ==
LOC: MTLAB 08:41
PROVIDERS: PCP Family Medicine; Referring Provider Family Medicine; Visit Provider Family Medicine
DX: I10 Essential (primary) hypertension (principal); E21.3 Hyperparathyroidism, unspecified; Z20.828 Contact with and (suspected) exposure to other viral communicable diseases
CPT/HCPCS: 36415; 80053; 80061; 83970; 86695; 86696

== ENCOUNTER → 2024-09-24 | Outpatient (CLI) | payer MEDICARE, SELFPAY ==
[2024-09-24 11:13] LABS: PTHIN 24 pg/mL (11-61)
[2024-09-24 11:17] LABS: ALB/GLOB Ratio 1.5 RATIO (0.9-2.4); AST(SGOT) 23 U/L (<=37); Alanine Aminotransfer ALT/SGPT 32 U/L (<=46); Albumin, Serum 4.8 g/dL (3.5-5.0); Alkaline Phosphatase 56 U/L (40-129); Anion Gap 13 (5-15); BUN 17 mg/dL (4-19); BUN/Creat Ratio 17.2 RATIO (10-20); Carbon Dioxide 25.9 mmol/L (21.0-32.0); Chloride 102 mmol/L (98-108); Cholesterol 211 mg/dL (<=200); Creatinine, Serum 1.01 mg/dL (0.70-1.20); EST Glomerular Filtration Rate 89 (>60); Globulin 3.3 g/dL (2.2-4.2); Glucose 92 mg/dL (70-99); High Density Lipoprotein 63 mg/dL; Low Density Lipoprotein Calc. 116 mg/dL; Potassium 4.2 mmol/L (3.3-5.1); Sodium Level 140 mmol/L (133-145); Triglycerides 162 mg/dL; Very Low Density Lipoprotein 32 mg/dL (5-40); cholesterol:hdl ratio screen 3.34
[2024-09-24 11:36] LABS: PSA,Total - Annual Screen 0.97 ng/mL (0.02-4.00)
== END | disposition home or self-care (01) ==
LOC: MFPLAB 08:42
PROVIDERS: PCP Family Medicine; Referring Provider Family Medicine; Visit Provider Family Medicine
DX: I10 Essential (primary) hypertension (principal); E23.1 Drug-induced hypopituitarism; Z12.5 Encounter for screening for malignant neoplasm of prostate
CPT/HCPCS: 36415; 80053; 80061; 83970; 84153; G0103

== ENCOUNTER → 2025-03-28 | Outpatient (CLI) | payer MEDICARE, SELFPAY ==
[2025-03-28 10:53] LABS: AST(SGOT) 21 U/L (<=37); Alanine Aminotransfer ALT/SGPT 24 U/L (<=46); Albumin, Serum 4.5 g/dL (3.5-5.0); Alkaline Phosphatase 67 U/L (40-129); Anion Gap 13 (5-15); BUN 20 mg/dL (4-19); BUN/Creat Ratio 18.6 RATIO (10-20); Calcium,Total 9.8 mg/dL (7.6-11.0); Carbon Dioxide 24.4 mmol/L (21.0-32.0); Chloride 104 mmol/L (98-108); Globulin 2.8 g/dL (2.2-4.2); Glucose 83 mg/dL (70-99); Potassium 3.5 mmol/L (3.3-5.1)
== END | disposition home or self-care (01) ==
LOC: MFPLAB 08:36
PROVIDERS: PCP Family Medicine; Visit Provider Family Medicine
DX: I10 Essential (primary) hypertension (principal)
CPT/HCPCS: 36415; 80053